=== PATIENT | male | born 1965 | race Caucasian/White ===

== ENCOUNTER → 2017-11-09 | Outpatient (CLI) | payer OTHER ==
[~2017-11-09] MED LIST: ASPIRIN EC325 MG PO; ATORVASTATIN CA80 MG PO; EFFIENT10 MG PO; LISINOPRIL20 MG PO; LOPRESSOR25 MG PO; NITROSTAT0.4 MG SL
== END | disposition home or self-care (01) ==
LOC: NUC 08:30
DX: Z01.818 Encounter for other preprocedural examination (principal); I25.10 Atherosclerotic heart disease of native coronary artery without angina pectoris
CPT/HCPCS: 78452; 93017; A9500

== ENCOUNTER → 2018-05-30 | Outpatient (CLI) | payer OTHER ==
[~2018-05-30] VITALS: Ht 172.7 cm; Wt 78.9 kg
[~2018-05-30] MED LIST changes: +LO-DOSE ASPIRIN81 M1 PO; +PLAVIX75 MG PO; +PROTONIX40 MG PO
== END | disposition home or self-care (01) ==
LOC: AMB 05-02 13:15
PROC: 0DB98ZX Excision of Duodenum, Via Natural or Artificial Opening Endoscopic, Diagnostic (ICD-10-PCS; principal; 2018-05-30)
PROC: 0DJD8ZZ Inspection of Lower Intestinal Tract, Via Natural or Artificial Opening Endoscopic (ICD-10-PCS; principal; 2018-05-30)
PROC: 0DB68ZX Excision of Stomach, Via Natural or Artificial Opening Endoscopic, Diagnostic (ICD-10-PCS; principal; 2018-05-30)
DX: Z12.11 Encounter for screening for malignant neoplasm of colon (principal); K29.80 Duodenitis without bleeding; K44.9 Diaphragmatic hernia without obstruction or gangrene; K29.70 Gastritis, unspecified, without bleeding
CPT/HCPCS: 88305; 88342 TC; 93005; J2250